=== PATIENT | male | born 1945 | race Caucasian/White ===

== ENCOUNTER 2024-12-14 15:16 | Outpatient (OUT) | payer MEDICARE, SELFPAY ==
--- OUTSIDE RECORDS SUMMARY | 2008-09-21 20:00 | XMS_ITS | Continuity of Care Document ---
Author Organization [facility] Address [address] [place] [address] Phone Care Team Providers Care Ssn/Ssbn Weapons Equipment Operator Name Role Phone No Information Unavailable Unavailable Advance Directives Directive Yes / No Effective Date File Name No Information Encounters Encounter Description Practice Location Reason(s) For Visit Diagnoses Date Provider Providers Copied on Encounter [facility], [address] [place] [address], [place], [address], [place] tel:[phone] No Location No Information Sep-0 [id number] No Information Family History Family Member Type Diagnosis Age At Onset No Information Payers Payer name Insurance type Covered republican ID Authoriza tion(s) No Information Social History Type Description Quantity Date Captured Comments Sex Male Smoking Status No Information Chief Complaint And Reason For Visit No Information Reason For Referral Reason For Referral No Information History Of Present Illness Encounter Date Complaint History Of Prese nt Illness No Information Functional Status Date Functional Assessmen t No Information Instructions Date Instruction Additional Infor mation No Information Assessments Type Assessment Date No Information Patient Care Teams Name Effective Dates (start - stop) Status Members No Information
--- NOTE | 2024-12-14 15:18 | XR_ITS ---
The [address] [address] Patient Name: GENESIS HARRIS MRN: [id number] date: 1945 Sex: M Assigned Patient Location: RAD Current Patient Location: [facility] Accession/Order Number: [id number] Exam Date: 12/14/2024 15:36 Report Date: 12/14/2024 15:37 At the request of: ROSITA CLAUDIO MD Procedure: XR abdomen 1V KUB: CLINICAL INFORMATION: Acute left flank pain for one week. COMPARISON: None FINDINGS: No suspicious urinary calcifications seen along the left collecting system. Phleboliths are seen within the pelvis. Right-sided double-J ureteral stent is noted. No bowel obstruction or free air. Osseous structures demonstrate degenerative change. XR/XR abdomen 1V IMPRESSION: NO DEFINITIVE LEFT URINARY TRACT CALCULUS. RIGHT SIDED DOUBLE-J URETERAL STENT IN PLACE. NO DEFINITIVE STONE IS SEEN ALONG THE COURSE OF THE STENT. Impression dictated by: Earl Frost Jr., DPatricioOPatricio 12/14/2024 3:37 PM Dictation Location: [place] [address] Electronically authenticated by: [id number] Y Date: 12/14/2024 15:37
--- OUTSIDE RECORDS SUMMARY | 2024-12-14 15:18 | XMS_ITS | Encounter Summary ---
Author Organization [facility] Address [address] [place] [address] Care Team Providers Care Vocational Training Teacher Name Role Phone Dinesh Pisano DO Primary Care Provider Dinesh Pisano DO Unavailable [phone] Gracy Luna TECHNOLOGY LAB TEACHER Unavailable [phone] Source Comments In the event this information is protected by the Federal Confidentiality of Alcohol and Drug AbusePatient Records regulations: The Federal rules restrict any use of the information to criminally investigate or prosecute any alcohol or drug abuse patient.[facility] Encounter Details Date Type Department Care Team (Late st Contact Info) Description 04/30/2024 Get Medical Advice Urology [address] [place] [address] Jacob Pena MD [address] [place], [place] [id number] Emergency Room Social History Tobacco Use Types Packs/Day Years Used Date Smoking Tobacco: Former Cigarettes Q uit: 1979 Smokeless Tobacco: Never Alcohol Use Standard Drinks/Week Comments Yes 7 (1 standard drink = 0.6 oz pur e alcohol) 2 drinks a day [facility] Utilities Answer Date Recorded In the past 12 months has th e electric, gas, oil, or water company threatened to shut off services in your home? No 04/26/2024 AUDIT-C Answer Date Recorded Q1: How often do you have a drink containing alcohol? 4 or more times a week 08/08/2019 Q2: How many drinks containi ng alcohol do you have on a typical day when you are drinking? 3 or 4 0 Q3: How often do you have si x or more drinks on one occasion? Monthly 08/08/2019 PHQ-2 Answer Date Recorded PHQ-2 score 3 09/13/2023 Hunger Vital Sign Answer Date Recorded Within the past 12 months, y ou worried that your food would run out before you got the money to buy more. Never true 04/26/20 24 Within the past 12 months, t he food you bought just didn't last and you didn't have money to get more. Never true 04/26/2024 PRAPARE - Transportation Answer Date Re corded In the past 12 months, has l ack of transportation kept you from medical appointments or from getting medications? No 12/2023 In the past 12 months, has l ack of transportation kept you from meetings, work, or from getting things needed for daily living? No 04/26/2024 Housing Stability Vital Sign Answer Marco e Recorded In the last 12 months, was t here a time when you were not able to pay the mortgage or rent on time? No 04/26/2024 Number of Times Moved in the Last Year Not on fi le 04/26/2024 At any time in the past 12 m [facility], were you homeless or living in a senior care (including now)? No 04/26/2024 Area Deprivation Index Answer Date Nguyễn rded National Score (1-100), lower number is lower ri sk 61 09/13/2023 State Score (1-10), lower number is lower risk 4 09/13/2023 Data from: https://www.neighborhoodatlas.medicine.[facility].edu/. Last address used for calculation [address] 09/13/2023 Sex and Gender Information Value Date Recorded Sex Assigned at Not on file Legal Sex Male 8:56 AM EST Gender Identity Not on file Sexual Orientation Not on file documented as of this encounter Functional Status * Are you deaf or do you have serious difficulty hearing? Answer Date of Assessment Author No 04/26/2024 4:04 PM Ti Rodríguez RN * Are you blind or do you have serious difficulty seeing, even when wearing glasses? Answer Date of Assessment Author No 04/26/2024 4:04 PM Ti Rodríguez RN * Do you have serious difficulty walking or climbing stairs? Answer Date of Assessment Author Yes 04/26/2024 4:04 PM Ti Rodríguez RN * Do you have difficulty dressing or bathing? Answer Date of Assessment Author Yes 04/26/2024 4:04 PM Ti Rodríguez RN * Because of a physical, mental, or emotional condition, do you have difficulty doing errands alone such as visiting a doctor's office or shopping? Answer Date of Assessment Author Yes 04/26/2024 4:04 PM Ti Rodríguez RN documented as of this encounter Mental Status * Because of a physical, mental, or emotional condition, do you have serious difficulty concentrating, remembering, or making decisions? Answer Entry Date Author Yes 04/26/2024 4:04 PM Ti Rodríguez RN documented in this encounter Miscellaneous Notes * Telephone Encounter - Mckenna Campa LPN - 04/30/2024 4:58 PM EST This nurse has reached out to provider, with no response at this time. He is not in office today at [place] and has already left [facility]. He will not be back in the office until , 05/02/2024. documented in this encounter Plan of Treatment Upcoming Encounters Date Type Department Care Team (Late st Contact Info) Description 01/03/2025 2:00 PM EDT Office Visit Cardiology [address] [place] [address] Micheline Willoughby MD [address] [facility] [place] [address] heart block, bradycardia documented as of this encounter Visit Diagnoses Not on filedocumented in this encounter Care Teams Vocational Training Teacher Relationship Specialty Start Date End Date Dinesh Pisano DO [address] [place] [address] PCP - General 09/26/00 Dinesh Pisano DO [address] [place] [address] Referring Internal Medicine 05/20/21 Gracy Luna APRN [address] [place] [address] Referring Internal Medicine 08/30/24 documented as of this encounter
--- OUTSIDE RECORDS SUMMARY | 2024-12-14 15:18 | XMS_ITS | Encounter Summary ---
Author Organization [facility] Address [address] [place] [address] Care Team Providers Care Attenuator Name Role Phone Dinesh Pisano DO Primary Care Provider Dinesh Pisano DO Unavailable [phone] Gracy Luna STENOTYPIST Unavailable [phone] Source Comments In the event this information is protected by the Federal Confidentiality of Alcohol and Drug AbusePatient Records regulations: The Federal rules restrict any use of the information to criminally investigate or prosecute any alcohol or drug abuse patient.[facility] Encounter Details Date Type Department Care Team (Late st Contact Info) Description 02/13/2024 Get Medical Advice Neurology [address] [place] [address] Angela Renteria APRN.BUSGIRL [address] [place] [address] Exhaustion Social History Tobacco Use Types Packs/Day Years Used Date Smoking Tobacco: Former Cigarettes Q uit: 1980 Smokeless Tobacco: Never Alcohol Use Standard Drinks/Week Comments Yes 7 (1 standard drink = 0.6 oz pure alcohol) patient states he has 3 drinks daily AUDIT-C Answer Date Recorded Q1: How often [...] Answer Date Recorded PHQ-2 score 3 09/13/2023 Area Deprivation Index Answer Date Nguyễn rded National Score (1-100), lower number is lower ri sk 61 09/13/2023 State Score (1-10), lower number is lower risk 4 09/13/2023 Data from: https://www.neighborhoodatlas.medicine.[facility].edu/. Last address used for calculation [address] 09/13/2023 Sex and Gender Information Value Date Recorded Sex Assigned at Not on file Legal Sex Male 8:56 AM EST Gender Identity Not on file Sexual Orientation Not on file documented as of this encounter Plan of Treatment Upcoming Encounters Date Type Department Care Team (Late st Contact Info) Description 01/03/2025 2:00 PM EDT Office Visit Cardiology [address] [place] [address] Micheline Willoughby MD [address] [place] [address] heart block, bradycardia documented as of this encounter Visit Diagnoses Not on filedocumented in this encounter Care Teams Attenuator Relationship Specialty Start Date End Date Dniesh Pisano DO [address] [place] [address] PCP - General 09/26/00 Dinesh Pisano DO [address] [place] [address] Referring Internal Medicine 05/20/21 Gracy Luna APRN [address] [place] [id number] Referring Internal Medicine 08/30/24 documented as of this encounter
--- OUTSIDE RECORDS SUMMARY | 2024-12-14 15:18 | XMS_ITS | Encounter Summary ---
Author Organization [facility] Address [address] [place] [address] Care Team Providers Care Business Process Consultant Name Role Phone Dinesh Pisano DO Primary Care Provider Dinesh Pisano DO Unavailable [phone] Gracy Luna COLLECTIONS ATTORNEY Unavailable Source Comments In the event this information is protected by the Federal Confidentiality of Alcohol and Drug AbusePatient Records regulations: The Federal rules restrict any use of the information to criminally investigate or prosecute any alcohol or drug abuse patient.[facility] Encounter Details Date Type Department Care Team (Late st Contact Info) Description 12/29/2022 Get Medical Advice Neurology [address] [place] [address] Angela Renteria APRN.EGGS INSPECTOR [address] [place] [address] Rivastigmine Social History Tobacco Use Types Packs/Day Years [...] more drinks on one occasion? Monthly 08/08/2019 Area Deprivation Index Answer Date Nguyễn rded National Score (1-100), lower number is lower ri sk 89 11/11/2022 State Score (1-10), lower number is lower risk 8 11/11/2022 Data from: https://www.neighborhoodatlas.medicine.[facility]/. Last address used for calculation [address] 11/11/2022 Sex and Gender Information Value Date Recorded Sex Assigned at Not on file Legal Sex Male 8:56 AM EST Gender Identity Not on file Sexual Orientation Not on file documented as of this encounter Plan of Treatment Upcoming Encounters Date Type Department Care Team (Late st Contact Info) Description 01/03/2025 2:00 PM EDT Office Visit Cardiology [address] [place] [address] Micheline Willoughby MD [address] [place] [address] heart block, bradycardia documented as of this encounter Visit Diagnoses Not on filedocumented in this encounter Care Teams Business Process Consultant Relationship Specialty Start Date End Date Dinesh Pisano DO [address] [place] [address] PCP - General 09/26/00 Dinesh Pisano DO [address] [place] [address] Referring Internal Medicine 05/20/21 Gracy Luna APRN [address] [facility] [address] [place] [address] Referring Internal Medicine 08/30/24 documented as of this encounter
--- OUTSIDE RECORDS SUMMARY | 2024-12-14 15:18 | XMS_ITS | Encounter Summary ---
Author Organization [facility] Address [address] [place] [address] Care Team Providers Care Land Appraiser Name Role Phone Dinesh Pisano DO Primary Care Provider Dinesh Pisano DO Unavailable [phone] Gracy Luna PREPRESS SUPERVISOR Unavailable [phone] Source Comments In the event this information is protected by the Federal Confidentiality of Alcohol and Drug AbusePatient Records regulations: The Federal rules restrict any use of the information to criminally investigate or prosecute any alcohol or drug abuse patient.[facility] Encounter Details Date Type Department Care Team (Late st Contact Info) Description 08/19/2023 Get Medical Advice Neurology [address] [place] [address] Angela Renteria APRN.TOP PRECIPITATOR OPERATOR HELPER [address] [place] [address] Supplement Question Social History Tobacco Use Types Packs/Day Years [...] is lower risk 8 11/11/2022 Data from: https://www.neighborhoodatlas.medicine.[facility]/. Last address used for calculation [address] [...] 2:00 PM EDT Office Visit Cardiology [address] [place] [address] Micheline Willoughby MD [address] [place] [address] heart block, bradycardia documented as of this encounter Visit Diagnoses Not on filedocumented in this encounter Care Teams Land Appraiser Relationship Specialty Start Date End Date Dinesh Pisano DO [address] [place] [address] PCP - General 09/26/00 Dinesh Pisano DO [address] [place] [address] Referring Internal Medicine 05/20/21 Gracy Luna APRN [address] [place] [id number] Referring Internal Medicine 08/30/24 documented as of this encounter
--- OUTSIDE RECORDS SUMMARY | 2024-12-14 15:18 | XMS_ITS | Encounter Summary ---
Author Organization [facility] Address [address] [place] [address] Care Team Providers Care Tar Boiler Name Role Phone Dinesh Pisano DO Primary Care Provider Dinesh Pisano DO Unavailable [phone] Gracy Luna CUSTOMER SUPPORT ANALYST Unavailable [phone] Source Comments In the event this information is protected by the Federal Confidentiality of Alcohol and Drug AbusePatient Records regulations: The Federal rules restrict any use of the information to criminally investigate or prosecute any alcohol or drug abuse patient.[facility] Encounter Details Date Type Department Care Team (Late st Contact Info) Description 11/21/2021 [place] [address] Provider, [facility] MRI Screening Questionnaire Completion Required Social History Tobacco Use Types Packs/Day Years [...] (1-100), lower number is lower ri sk 83 11/10/2021 State Score (1-10), lower number is lower risk N ot on file 11/10/2021 Data from: https://www.neighborhoodatlas.medicine.[facility].edu/. Last address used for calculation [address] 11/10/2021 Sex and Gender Information Value Date Recorded Sex Assigned at Not on file Legal Sex Male 8:56 AM EST Gender Identity Not on file Sexual Orientation Not on file COVID-19 Exposure Response Date Recorded In the last 10 days, have yo u been in contact with someone who was confirmed or suspected to have Coronavirus/COVID-19? No / Unsure 11/23/2021 1:32 PM EDT documented as of this encounter Plan of Treatment Upcoming Encounters Date Type Department Care Team (Late st Contact Info) Description 01/03/2025 2:00 PM EDT Office Visit Cardiology [address] [place] [address] Micheline Willoughby MD [address] [place] [address] heart block, bradycardia documented as of this encounter Visit Diagnoses Not on filedocumented in this encounter Care Teams Tar Boiler Relationship Specialty Start Date End Date Dinesh Pisano DO [address] [place] [address] PCP - General 09/26/00 Dinesh Pisano DO [address] [place] [address] Referring Internal Medicine 05/20/21 Gracy Luna APRN [address] [place] [id number] Referring Internal Medicine 08/30/24 documented as of this encounter
--- OUTSIDE RECORDS SUMMARY | 2024-12-14 15:18 | XMS_ITS | Encounter Summary ---
Author Organization [facility] Address [address] [place] [address] Care Team Providers Care Spinner Fixer Name Role Phone Dinesh Pisano DO Primary Care Provider Dinesh Pisano DO Unavailable [phone] Gracy Luna HAND III CUTTER Unavailable [phone] Source Comments In the event this information is protected by the Federal Confidentiality of Alcohol and Drug AbusePatient Records regulations: The Federal rules restrict any use of the information to criminally investigate or prosecute any alcohol or drug abuse patient.[facility] Encounter Details Date Type Department Care Team (Late st Contact Info) Description 06/22/2023 Patient Msg Neurology [address] [place] [address] Angela Renteria APRN.TARIFF COUNSEL [address] [place] [address] Recent ECG? Social History Tobacco Use Types Packs/Day Years [...] is lower risk 8 11/11/2022 Data from: https://www.neighborhoodatlas.medicine.[facility]/. Last address used for calculation [...] 2:00 PM EDT Office Visit Cardiology [address] [place] [address] Micheline Willoughby MD [address] [place] [address] heart block, bradycardia documented as of this encounter Visit Diagnoses Not on filedocumented in this encounter Care Teams Spinner Fixer Relationship Specialty Start Date End Date Dinesh Pisano DO [address] [place] [address] PCP - General 09/26/00 Dinesh Pisano DO [address] [place] [address] Referring Internal Medicine 05/20/21 Gracy Luna APRN [address] [facility] [address] [place] [phone] Referring Internal Medicine 08/30/24 documented as of this encounter
--- OUTSIDE RECORDS SUMMARY | 2024-12-14 15:18 | XMS_ITS | Encounter Summary ---
Author Organization [facility] Address [address] [place] [address] Care Team Providers Care Javascript Software Engineer Name Role Phone Dinesh Pisano DO Primary Care Provider Dinesh Pisano DO Unavailable [phone] Gracy Luna GRADUATE ADVISOR Unavailable [phone] Source Comments In the event this information is protected by the Federal Confidentiality of Alcohol and Drug AbusePatient Records regulations: The Federal rules restrict any use of the information to criminally investigate or prosecute any alcohol or drug abuse patient.[facility] Encounter Details Date Type Department Care Team (Late st Contact Info) Description 09/30/2023 Get Medical Advice Neurology [address] [place] [address] Mehrdad Arana MD [address] [place], [place] [id number] Medication Social History Tobacco Use Types Packs/Day Years [...] is lower risk 4 09/13/2023 Data from: https://www.neighborhoodatlas.medicine.[facility].edu/. Last address used for calculation [address] [...] 2:00 PM EDT Office Visit Cardiology [address] [place] [address] Micheline Willoughby MD [address] [place] [address] heart block, bradycardia documented as of this encounter Visit Diagnoses Not on filedocumented in this encounter Care Teams Javascript Software Engineer Relationship Specialty Start Date End Date Dinesh Pisano DO [address] [place] [address] PCP - General 09/26/00 Dinesh Pisano DO [address] [place] [address] Referring Internal Medicine 05/20/21 Gracy Luna APRN [address] [place] [id number] Referring Internal Medicine 08/30/24 documented as of this encounter
--- OUTSIDE RECORDS SUMMARY | 2024-12-14 15:18 | XMS_ITS | Encounter Summary ---
Author Organization [facility] Address [address] [place] [address] Care Team Providers Care Culinary Chef Name Role Phone Dinesh Pisano DO Primary Care Provider Dinesh Pisano DO Unavailable Gracy Luna AIRCRAFT STRUCTURAL REPAIR MECHANIC Unavailable [phone] Source Comments In the event this information is protected by the Federal Confidentiality of Alcohol and Drug AbusePatient Records regulations: The Federal rules restrict any use of the information to criminally investigate or prosecute any alcohol or drug abuse patient.[facility] Encounter Details Date Type Department Care Team (Late st Contact Info) Description 04/11/2024 Patient Msg Pre Anesthesia [address] [place], [place] [id number] Baltazar Malik APRN.TEXTILE SCREEN MAKER [address] [place], [place] [phone] PREOPERATIVE INSTRUCTIONS Social History Tobacco Use Types Packs/Day Years Used Date Smoking Tobacco: Former Cigarettes Q uit: 1980 Smokeless Tobacco: Never Alcohol Use Standard Drinks/Week Comments Yes 7 (1 standard drink = 0.6 oz pur e alcohol) 2 drinks a day AUDIT-C Answer Date Recorded Q1: How often [...] is lower risk 4 09/13/2023 Data from: https://www.neighborhoodatlas.medicine.[facility]/. Last address used for calculation [address] 09/13/2023 Sex and Gender Information Value Date Recorded Sex Assigned at Not on file Legal Sex Male 8:56 AM EST Gender Identity Not on file Sexual Orientation Not on file documented as of this encounter Miscellaneous Notes * Telephone Encounter - Evita Barnes - 04/24/2024 12:42 PM EST Patient spouse calling because she is trying to get an approximate time of recovery for patient tomorrow She was told the procedure itself was about 2 hours but she is arranging a ride from family and wanted to know how long they would be there Please advise documented in this encounter Plan of Treatment Upcoming Encounters Date Type Department Care Team (Late st Contact Info) Description 01/03/2025 2:00 PM EDT Office Visit Cardiology [address] [facility] [place] [address] Micheline Willoughby MD [address] [facility] [place] [address] heart block, bradycardia documented as of this encounter Visit Diagnoses Not on filedocumented in this encounter Care Teams Culinary Chef Relationship Specialty Start Date End Date Dinesh Pisano DO [address] [place] [address] PCP - General 09/26/00 Dinesh Pisano DO [address] [place] [address] Referring Internal Medicine 05/20/21 Gracy Luna APRN [address] [place] [address] Referring Internal Medicine 08/30/24 documented as of this encounter
--- OUTSIDE RECORDS SUMMARY | 2024-12-14 15:18 | XMS_ITS | Encounter Summary ---
Author Organization [facility] Address [address] [place] [address] Care Team Providers Care Saddle Stitching Machine Operator Name Role Phone Dinesh Pisano DO Primary Care Provider Dinesh Pisano DO Unavailable [phone] Gracy Luna ROTARY VENEER MACHINE OPERATOR Unavailable [phone] Source Comments In the event this information is protected by the Federal Confidentiality of Alcohol and Drug AbusePatient Records regulations: The Federal rules restrict any use of the information to criminally investigate or prosecute any alcohol or drug abuse patient.[facility] Encounter Details Date Type Department Care Team (Late st Contact Info) Description 12/17/2022 Get Medical Advice Neurology [address] [id number] Angela Renteria APRN.OVERHEAD WORKER [address] [place], [place] [id number] Medication Social History Tobacco Use Types Packs/Day [...] is lower risk 8 11/11/2022 Data from: https://www.neighborhoodatlas.medicine.[facility]/. Last address used for calculation [address] [...] 2:00 PM EDT Office Visit Cardiology [address] [facility] [address] [facility] [place] [address] Micheline Willoughby MD [address] [facility] [facility] [place] [address] heart block, bradycardia documented as of this encounter Visit Diagnoses Not on filedocumented in this encounter Care Teams Saddle Stitching Machine Operator Relationship Specialty Start Date End Date Dinesh Pisano DO [address] [place] [address] PCP - General 09/26/00 Dinesh Pisano DO [address] [place] [address] Referring Internal Medicine 05/20/21 Gracy Luna, ROTARY VENEER MACHINE OPERATOR [address] [facility] [address] [place] [id number] Referring Internal Medicine 08/30/24 documented as of this encounter
--- OUTSIDE RECORDS SUMMARY | 2024-12-14 15:19 | XMS_ITS | Encounter Summary ---
Author Organization [facility] Address [address] [place] [address] Care Team Providers Care Underground Conduit Installer Name Role Phone Dinesh Pisano DO Primary Care Provider Dinesh Pisano DO Unavailable [phone] Gracy Luna LEATHER SKINNER Unavailable [phone] Source Comments In the event this information is protected by the Federal Confidentiality of Alcohol and Drug AbusePatient Records regulations: The Federal rules restrict any use of the information to criminally investigate or prosecute any alcohol or drug abuse patient.[facility] Encounter Details Date Type Department Care Team (Late st Contact Info) Description 01/24/2023 Get Medical Advice [facility] Speech Therapy [address] [place] [address] Tricia Jennings, [facility] MEDICAL DIRECTOR [address] [place] [address] Encouragement Social History Tobacco Use Types Packs/Day Years [...] risk 8 11/11/2022 Data from: https://www.neighborhoodatlas.medicine.[facility]/. Last address used for [...] 2:00 PM EDT Office Visit Card[facility] [address] [facility] [place] [address] Micheline Willoughby MD [address] [place] [address] heart block, bradycardia documented as of this encounter Visit Diagnoses Not on filedocumented in this encounter Care Teams Underground Conduit Installer Relationship Specialty Start Date End Date Dinesh Pisano DO [address] [place] [address] PCP - General 09/26/00 Dinesh Pisano DO [address] [place] [address] Referring Internal Medicine 05/20/21 Gracy Luna APRN [address] [facility] [address] [place] [id number] Referring Internal Medicine 08/30/24 documented as of this encounter
--- OUTSIDE RECORDS SUMMARY | 2024-12-14 15:19 | XMS_ITS | Encounter Summary ---
Author Organization [facility] Address [address] [place] [address] Care Team Providers Care Controller Coal Or Ore Name Role Phone Dinesh Pisano DO Unavailable [phone] Dinesh Pisano DO Primary Care Provider Dinesh Pisano DO Unavailable [phone] Encounter Details Date Type Department Care Team (Late st Contact Info) Description 04/12/2024 Clinisync Result Encounter [facility] External Department Unsolicited Provider, Generic External Data Social History Tobacco Use Types Packs/Day Years Used Date Smoking Tobacco: Former Cigarettes 1 4 - 1969 Smokeless Tobacco: Never Alcohol Use Standard Drinks/Week Comments Yes 4 (1 standard drink = 0.6 oz pure alcohol) caffeine intake: 2-3 cups per day coffee, soda and tea PHQ-2 Answer Date Recorded Patient Health Questionnaire-2 Score 0 04/03/2024 Education Answer Date Recorded What is the highest level of school you have completed or the highest degree you have received? Bachelor's degree (e.g., BA, AB, BS) 03/01/2023 Sex and Gender Information Value Date Recorded Sex Assigned at Not on file Legal Sex Male 6:38 PM EDT Gender Identity Not on file Sexual Orientation Not on file documented as of this encounter Plan of Treatment Upcoming Encounters Date Type Department Care Team (Late st Contact Info) Description 01/14/2025 3:00 PM EDT Office Visit [facility] [address] [place] [address] Dinesh Pisano DO [address] [place] [address] documented as of this encounter Procedures Procedure Name Priority Date/Time Associated Diagnosis Comments ECG 12-LEAD 04/12/2024 1:04 PM EDT documented in this encounter Results * ECG 12 lead (04/12/2024 1:04 PM EDT) 04/12/2024 1:04 PM EDT Narrative [facility] - 04/28/2024 2:03 PM EST Ventricular Rate : 80 BPM Atrial Rate : 80 BPM P-R Interval : 284 ms QRS Duration : 94 ms Q-T Interval : 374 ms QTC Calculation(Bazett) : 431 ms Calculated P [place] : 37 degrees Calculated R [place] : -19 degrees Calculated T [place] : 59 degrees SINUS RHYTHM WITH 1ST DEGREE AV BLOCK INFERIOR MYOCARDIAL INFARCTION , AGE UNDETERMINED POSSIBLE ABNORMAL ECG Confirmed by ARIANNE JEAN M.D. ([id number]) on 04/28/2024 2:03:22 PM NAME : BUCKY HARRIS PID : [id number] : 1945 Gender : Male Race : ORD : [id number] Procedure Date : Apr 12 2024 13:04:12 Edit Date : Apr 28 2024 14:03:27 Diagnosis: SINUS RHYTHM WITH 1ST DEGREE AV BLOCK INFERIOR MYOCARDIAL INFARCTION , AGE UNDETERMINED POSSIBLE ABNORMAL ECG Confirmed by ARIANNE JEAN M.D. ([id number]) on 04/28/2024 2:03:22 PM Test Reason : Location : 145 : [place] Overread By : ARIANNE JEAN M.D. Edited By : ARIANNE JEAN M.D. Referred By : ALVAREZ LYONS Acquired by : vs, Procedure Note Radiology, Radiologist, - 04/28/2024 Ventricular Rate : 80 BPM Atrial Rate : 80 BPM P-R Interval : 284 ms QRS Duration : 94 ms Q-T Interval : 374 ms QTC Calculation(Bazett) : 431 ms Calculated P [place] : 37 degrees Calculated R [place] : -19 degrees Calculated T [place] : 59 degrees SINUS RHYTHM WITH 1ST DEGREE AV BLOCK INFERIOR MYOCARDIAL INFARCTION , AGE UNDETERMINED POSSIBLE ABNORMAL ECG Confirmed by ARIANNE JEAN M.D. ([id number]) on 04/28/2024 2:03:22PM NAME : BUCKY HARRIS PID : [id number] : 1945 Gender : Male Race : ORD : [id number] Procedure Date : Apr 12 2024 13:04:12 Edit Date : Apr 28 2024 14:03:27 Diagnosis: SINUS RHYTHM WITH 1ST DEGREE AV BLOCK INFERIOR MYOCARDIAL INFARCTION , AGE UNDETERMINED POSSIBLE ABNORMAL ECG Confirmed by ARIANNE JEAN M.D. ([id number]) on 04/28/2024 2:03:22PM Test Reason : Location : 145 : [place] Overread By : ARIANNE JEAN M.D. Edited By : ARIANNE JEAN M.D. Referred By : ALVAREZ LYONS Acquired by : vs, us Generic External Data Provider ECG ORDERABLES F inal Result Performing Organization Address City/State/[facility] Co de Phone Number [facility] documented in this encounter Visit Diagnoses Not on filedocumented in this encounter Care Teams Controller Coal Or Ore Relationship Specialty Start Date End Date Dinesh Pisano DO [address] [place] [address] PCP - [employer] 06/20/22 08/24/24 Dinesh Pisano DO [address] [place] [address] PCP - General Internal Medicine 11/30/22 Dinesh Pisano DO [address] [place] [address] PCP - [facility] 06/20/23 [birth year] documented as of this encounter
--- OUTSIDE RECORDS SUMMARY | 2024-12-14 15:19 | XMS_ITS | Encounter Summary ---
Author Organization [facility] Address [address] [place] [address] Care Team Providers Care Feather Mixer Name Role Phone Dinesh Pisano DO Unavailable [phone] Dinesh Pisano DO Primary Care Provider Dinesh Pisano DO Unavailable [phone] Encounter Details Date Type Department Care Team (Late st Contact Info) Description 04/25/2024 Clinisync Result Encounter [facility] External Department Unsolicited [...] Encounters Date Type Department Care Team (Late Contact Info) Description 01/14/2025 3:00 PM EDT Office Visit [facility] [address] [place] [address] Dinesh Pisano DO [address] [place] [address] documented as of this encounter Procedures Procedure Name Priority Date/Time Associated Diagnosis Comments ECG 12-LEAD 04/25/2024 4:04 PM EST [facility] Routine 04/25/2024 2:41 PM EST documented in this encounter Results * ECG 12 lead (04/25/2024 4:04 PM EST) 04/25/2024 4:04 PM EST Narrative [facility] - 04/28/2024 7:07 AM EST Ventricular Rate : 43 BPM Atrial Rate : 62 BPM P-R Interval : 382 ms QRS Duration : 112 ms Q-T Interval : 493 ms QTC Calculation(Bazett) : 417 ms Calculated P [place] : 19 degrees Calculated R [place] : -11 degrees Calculated T [place] : 60 degrees Sinus bradycardia Second deg AVB, Mobitz I ([place]) Incomplete left bundle branch block Confirmed by ARIANNE JEAN M.D. ([id number]) on 04/28/2024 7:07:20 AM NAME : GENESIS HARRIS PID : [id number] : 1945 Gender : Male Race : ORD : [id number] Procedure Date : Apr 25 2024 16:04:43 Edit Date : Apr 28 2024 07:07:23 Diagnosis: Sinus bradycardia Second deg AVB, Mobitz I ([place]) Incomplete left bundle branch block Confirmed by ARIANNE JEAN M.D. ([id number]) on 04/28/2024 7:07:20 AM Test Reason : Post-OP Location : 400 : EKG POOL Overread By : ARIANNE JEAN M.D. Edited By : ARIANNE JEAN M.D. Referred By : , Acquired by : LAURA SANTIAGO Procedure Note Radiology, Radiologist, - 04/28/2024 Ventricular Rate : 43 BPM Atrial Rate : 62 BPM P-R Interval : 382 ms QRS Duration : 112 ms Q-T Interval : 493 ms QTC Calculation(Bazett) : 417 ms Calculated P [place] : 19 degrees Calculated R [place] : -11 degrees Calculated T [place] : 60 degrees Sinus bradycardia Second deg AVB, Mobitz I ([place]enckebach) Incomplete left bundle branch block Confirmed by ARIANNE JEAN M.D. ([id number]) on 04/28/2024 7:07:20AM NAME : GENESIS HARRIS PID : [id number] : 1945 Gender : Male Race : ORD : [id number] Procedure Date : Apr 25 2024 16:04:43 Edit Date : Apr 28 2024 07:07:23 Diagnosis: Sinus bradycardia Second deg AVB, Mobitz I ([place]kebach) Incomplete left bundle branch block Confirmed by ARIANNE JEAN M.D. ([id number]) on 04/28/2024 7:07:20AM Test Reason : Post-OP Location : 400 : [facility] Overread By : ARIANNE JEAN M.D. Edited By : ARIANNE JEAN M.D. Referred By : , Acquired by : LAURA SANTIAGO us Generic External Data Provider ECG ORDERABLES F inal Result [facility] * [facility] SURGICAL PATHOLOGY (04/25/2024 2:41 PM EST) [facility] CASE REPORT [facility] Comment: Surgical Pathology Report Case: [id number] Authorizing Provider: Jacob Pena MD Collected: 04/25/2024 02:41 PM Ordering Location: [facility] Received: 04/25/2024 03:47 PM Operating Room Pathologist: Antonio Sy MD Specimen: Prostate, Chips [facility] FINAL DIAGNOSIS [facility] Comment: A. Prostate, chips, transurethral resection: - Benign fibromuscular and glandular hyperplasia. GROSS DESCRIPTION [facility] Comment: A. Prostate, Chips Received in formalin designated prostate chips are multiple segments of mcmanus rubbery tissue and scant hemorrhagic material which aggregates to 21.3 x 9.5 x 0.8 cm and weighing 82 g. Water Commissioner sections are submitted in 8 cassettes. BF April 26, 2024 11:01 AM Gross examination performed at 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 04/25/2024 2:41 PM EST 04/26/2024 3:49 PM EST Narrative [facility] - 05/01/2024 3:29 PM EST Specimen Type: TISSUE SPECIMEN Ordering Facility: [facility] Address: [address] [place] [address] Original Ordering Provider: JACOB PENA us Generic External Data Provider [facility] F inal Result [facility] [address] [facility] [address] [place] [address] [facility] [address] [place] [id number] documented in this encounter Visit Diagnoses Not on filedocumented in this encounter Care Teams Feather Mixer Relationship Specialty Start Date End Date Dinesh Pisano DO [address] [place] [address] PCP - [employer] 06/20/22 08/24/24 Dinesh Pisano DO [address] [place] [address] PCP - General Internal Medicine 11/30/22 Dinesh Pisano DO [address] [place] [address] PCP - [facility] 06/20/23 [birth year]/19/[birth year] documented as of this encounter
--- OUTSIDE RECORDS SUMMARY | 2024-12-14 15:19 | XMS_ITS | Encounter Summary ---
Author Organization [facility] Address [address] [place] [address] Care Team Providers Care Drupal Architect Name Role Phone Dinesh Pisano DO Primary Care Provider Dinesh Pisano DO Unavailable [phone] Gracy Luna TRACK VEHICLE REPAIRER Unavailable [phone] Source Comments In the event this information is protected by the Federal Confidentiality of Alcohol and Drug AbusePatient Records regulations: The Federal rules restrict any use of the information to criminally investigate or prosecute any alcohol or drug abuse patient.[facility] Encounter Details Date Type Department Care Team (Late st Contact Info) Description 07/25/2024 Patient [facility] [place] [address] Provider, [facility] Reminder: Review your MyChart Caregiver(s) Social History Tobacco Use Types Packs/Day Years Used Date Smoking Tobacco: Former Cigarettes Q uit: 1980 Smokeless Tobacco: Never Alcohol Use Standard Drinks/Week Comments Yes 7 (1 standard drink = 0.6 oz pur e alcohol) 2 drinks a day [facility] Utilities Answer Date Recorded In the past [...] any time in the past 12 [facility], were you homeless or living in a intermediate (including now)? No 04/26/2024 Area Deprivation Index Answer Date Nguyễn rded National Score (1-100), lower number is lower ri sk 61 09/13/2023 State Score (1-10), lower number is lower risk 4 09/13/2023 Data from: https://www.neighborhoodatlas.medicine.[facility].edu/. Last address used for calculation [...] Ti Rodríguez RN documented in this encounter Plan of Treatment Upcoming Encounters Date Type Department Care Team (Late st Contact Info) Description 01/03/2025 2:00 PM EDT Office Visit Cardiology [address] [facility] Karla [facility] [place] [address] Micheline Willoughby MD [address] [facility] KARLA [facility] [place] [address] heart block, bradycardia documented as of this encounter Visit Diagnoses Not on filedocumented in this encounter Care Teams Drupal Architect Relationship Specialty Start Date End Date Dinesh Pisano DO [address] [facility] [address] [place] [address] PCP - General 09/26/00 Dinesh Pisano DO [address] [facility] [address] [place] [address] Referring Internal Medicine 05/20/21 Gracy Luna APRN [address] [place] [address] Referring Internal Medicine 08/30/24 documented as of this encounter
--- OUTSIDE RECORDS SUMMARY | 2024-12-14 15:19 | XMS_ITS | Encounter Summary ---
Author Organization [facility] Address [address] [place] [address] Care Team Providers Care Hand Ii Blocker Name Role Phone Dinesh Pisano DO Unavailable [phone] Dinesh Pisano DO Primary Care Provider Dinesh Pisano DO Unavailable [phone] Encounter Details Date Type Department Care Team (Late st Contact Info) Description 11/10/2023 Clinisync Result Encounter [facility] External Department Unsolicited [...] Date Recorded Patient Health Questionnaire-2 Score 0 04/04/2023 Education Answer Date Recorded What is the [...] IM [address] [place] [address] Dinesh Pisano DO [address] [place] [address] documented as of this encounter Procedures Procedure Name Priority Date/Time Associated Diagnosis Comments US KIDNEY/BLADDER 11/10/2023 1:3 6 PM EDT documented in this encounter Results * US KIDNEY/BLADDER (11/10/2023 1:36 PM EDT) Anatomical Region Laterality Modality Other 11/10/2023 1:36 PM EDT Narrative 11/10/2023 4:47 PM EDT * * *Final Report* * * DATE OF EXAM: Nov 10 2023 1:36PM [facility] 1055 - US KIDNEY/BLADDER / PROCEDURE REASON: Urge incontinence * * * * Physician Interpretation * * * * EXAMINATION: RENAL ULTRASOUND CLINICAL HISTORY: Urge incontinence. TECHNIQUE: Sonography of the kidneys and urinary bladder was performed. Images were obtained and stored in a permanent archive. MQ: UR_1 COMPARISON: None RESULT: Right Kidney: -Renal length: 13.4 cm -Parenchyma: Normal parenchymal echogenicity. Normal parenchymal thickness. -Collecting system: No hydronephrosis. -Calculus: Echogenic foci are noted in the right kidney measuring up to 4 mm. No shadowing or twinkle artifact is noted on color Doppler imaging. These may represent vascular calcifications or small renal calculi. -Lesion: None. Left Kidney: -Renal length: 13.4 cm -Parenchyma: Normal parenchymal echogenicity. Normal parenchymal thickness. -Collecting system: No hydronephrosis. -Calculus: Multiple calculi are noted, the largest cluster noted in the upper pole measuring up to 1 x 1 x 1.1 cm. -Lesion: There is a parapelvic cyst in the upper pole of the left kidney measuring up to 1.9 cm. Bladder: No bladder calculus, mass, or wall thickening is seen. Prior to voiding, the bladder measured approximately 6.1 x 5.5 x 5 cm, resulting in a prevoid volume of 116 cc. After voiding, the bladder measured approximately 5.7 x 4.3 x 2.5 cm, resulting in a postvoid volume of 45 cc. The prostate gland is enlarged measuring 8.3 x 6.2 x 5.7 cm, resulting in a volume of approximately 151 cc. Other: Increased echogenicity of the liver is noted, in keeping with hepatic steatosis IMPRESSION: 1. No sonographic evidence of bladder calculus, mass, or wall thickening. Small postvoid residual as noted above. 2. Markedly enlarged prostate gland. 3. Left-sided nephrolithiasis. Nephrolithiasis versus vascular calcification in the right kidney. No hydronephrosis in either kidney. 4. Incidental note made of hepatic steatosis. Casting Operator: PSCB Transcribe Date/Time: Nov 10 2023 4:41P Dictated by : FABY CANAS MD This examination was interpreted and the report reviewed and electronically signed by: FABY CANAS MD on Nov 10 2023 4:44PM EST [id number] Procedure Note Radiology, Radiologist, - 11/10/2023 * * *Final Report* * * DATE OF EXAM: Nov 10 2023 1:36PM [facility] 1055 - US KIDNEY/BLADDER / PROCEDURE REASON: Urge incontinence * * * * Physician Interpretation * * * * EXAMINATION: RENAL ULTRASOUND CLINICAL HISTORY: Urge incontinence. TECHNIQUE: Sonography of the kidneys and urinary bladder was performed. Images were obtained and stored in a permanent archive. MQ: UR_1 COMPARISON: None RESULT: Right Kidney: -Renal length: 13.4 cm -Parenchyma: Normal parenchymal echogenicity. Normal parenchymal thickness. -Collecting system: No hydronephrosis. -Calculus: Echogenic foci are noted in the right kidney measuring up to 4 mm. No shadowing or twinkle artifact is noted on color Doppler imaging. These may represent vascular calcifications or small renal calculi. -Lesion: None. Left Kidney: -Renal length: 13.4 cm -Parenchyma: Normal parenchymal echogenicity. Normal parenchymal thickness. -Collecting system: No hydronephrosis. -Calculus: Multiple calculi are noted, the largest cluster noted in the upper pole measuring up to 1 x 1 x 1.1 cm. -Lesion: There is a parapelvic cyst in the upper pole of the left kidney measuring up to 1.9 cm. Bladder: No bladder calculus, mass, or wall thickening is seen. Prior to voiding, the bladder measured approximately 6.1 x 5.5 x 5 cm, resulting in a prevoid volume of 116 cc. After voiding, the bladder measured approximately 5.7 x 4.3 x 2.5 cm, resulting in a postvoid volume of 45 cc. The prostate gland is enlarged measuring 8.3 x 6.2 x 5.7 cm, resulting in a volume of approximately 151 cc. Other: Increased echogenicity of the liver is noted, in keeping with hepatic steatosis IMPRESSION: 1. No sonographic evidence of bladder calculus, mass, or wall thickening. Small postvoid residual as noted above. 2. Markedly enlarged prostate gland. 3. Left-sided nephrolithiasis. Nephrolithiasis versus vascular calcification in the right kidney. No hydronephrosis in either kidney. 4. Incidental note made of hepatic steatosis. Casting Operator: LALO Transcribe Date/Time: Nov 10 2023 4:41P Dictated by : FABY CANAS MD This examination was interpreted and the report reviewed and electronically signed by: FABY CANAS MD on Nov 10 2023 4:44PM EST [id number] Generic External Data Provider [facility] Final Result documented in this encounter Visit Diagnoses Not on filedocumented in this encounter Care Teams Hand Ii Blocker Relationship Specialty Start Date End Date Dinesh Pisano DO [address] [place] [address] PCP - [employer] 06/20/22 08/24/24 Dinesh Pisano DO [address] [place] [address] PCP - General Internal Medicine 11/30/22 Dinesh Pisano DO [address] [place] [address] PCP - [facility] 06/20/23 04/19/64 documented as of this encounter
--- OUTSIDE RECORDS SUMMARY | 2024-12-14 15:19 | XMS_ITS | Encounter Summary ---
Author Organization [facility] Address [address] [place] [address] Care Team Providers Care Building Architect Name Role Phone Dinesh Pisano DO Primary Care Provider Dinesh Pisano DO Unavailable [phone] Gracy Luna SHAMPOO ASSISTANT Unavailable [phone] Source Comments In the event this information is protected by the Federal Confidentiality of Alcohol and Drug AbusePatient Records regulations: The Federal rules restrict any use of the information to criminally investigate or prosecute any alcohol or drug abuse patient.[facility] Encounter Details Date Type Department Care Team (Late st Contact Info) Description 04/05/2023 Patient Msg Neurology [address] [place] [id number] Provider, Ccf PLEASE CONFIRM SLEEP STUDY #2 Social History Tobacco Use Types Packs/Day Years [...] is lower risk 8 11/11/2022 Data from: https://www.neighborhoodatlas.medicine.[facility].edu/. Last address used for calculation [address] [...] 2:00 PM EDT Office Visit Cardiology [address] [place] [address] Micheline Willoughby MD [address] [place] [address] heart block, bradycardia documented as of this encounter Visit Diagnoses Not on filedocumented in this encounter Care Teams Building Architect Relationship Specialty Start Date End Date Dinesh Pisano DO [address] [place] [place] [address] PCP - General 09/26/00 Dinesh Pisano DO [address] [place] [place] [address] Referring Internal Medicine 05/20/21 Gracy Luna APRN [address] [place] [place] [address] Referring Internal Medicine 08/30/24 documented as of this encounter
--- OUTSIDE RECORDS SUMMARY | 2024-12-14 15:19 | XMS_ITS | Encounter Summary ---
Author Organization [facility] Address [address] [place] [address] Care Team Providers Care Electrical Installer Name Role Phone Dinesh Pisano DO Primary Care Provider Dinesh Pisano DO Unavailable [phone] Gracy Luna STAVE AND BOLT EQUALIZER Unavailable [phone] Source Comments In the event this information is protected by the Federal Confidentiality of Alcohol and Drug AbusePatient Records regulations: The Federal rules restrict any use of the information to criminally investigate or prosecute any alcohol or drug abuse patient.[facility] Encounter Details Date Type Department Care Team (Late st Contact Info) Description 09/27/2022 Get Medical Advice Neurology [address] [phone] Angela Renteria APRN.RESTAURANT SERVER [address] [place], [place] [phone] Follow up to medication message sent Social History Tobacco Use Types Packs/Day Years [...] lower number is lower ri sk 83 07/07/2022 State Score (1-10), lower number is lower risk N ot on file 07/07/2022 Data from: https://www.neighborhoodatlas.[facility]/. Last address used for calculation [address] 07/07/2022 Sex and Gender Information Value Date Recorded Sex Assigned at Not on file Legal Sex Male 8:56 AM EST Gender Identity Not on file Sexual Orientation Not on file documented as of this encounter Plan of Treatment Upcoming Encounters Date Type Department Care Team (Late st Contact Info) Description 01/03/2025 2:00 PM EDT Office Visit Cardiology [address] [place] [address] Micheline Willoughby MD [address] [place] [address] heart block, bradycardia documented as of this encounter Visit Diagnoses Not on filedocumented in this encounter Care Teams Electrical Installer Relationship Specialty Start Date End Date Dinesh Pisano DO [address] [place] [address] [place] [address] PCP - General 09/26/00 Dinesh Pisano DO [address] [place] [place] [address] Referring Internal Medicine 05/20/21 Gracy Luna APRN [address] [facility] [address] [place] [address] Referring Internal Medicine 08/30/24 documented as of this encounter
--- OUTSIDE RECORDS SUMMARY | 2024-12-14 15:19 | XMS_ITS | Encounter Summary ---
Author Organization [facility] Address [address] [place] [address] Care Team Providers Care Leveling Machine Operator Name Role Phone Dinesh Pisano DO Primary Care Provider Dinesh Pisano DO Unavailable [phone] Gracy Luna PARTS EXPEDITER Unavailable [phone] Source Comments In the event this information is protected by the Federal Confidentiality of Alcohol and Drug AbusePatient Records regulations: The Federal rules restrict any use of the information to criminally investigate or prosecute any alcohol or drug abuse patient.[facility] Encounter Details Date Type Department Care Team (Late st Contact Info) Description 07/07/2022 Patient Msg Neurology [address] [place] [address] Angela Renteria APRN.PICK OUT HAND [address] [place] [address] Update per Eugenia PETE Social History Tobacco Use Types Packs/Day Years [...] N ot on file 07/07/2022 Data from: https://www.neighborhoodatlas.medicine.[facility]/. Last address used for calculation [address] 07/07/2022 Sex and Gender Information Value Date Recorded Sex Assigned at Not on file Legal Sex Male 8:56 AM EST Gender Identity Not on file Sexual Orientation Not on file documented as of this encounter Miscellaneous Notes * Telephone Encounter - Eugenia Berrios LISW - 07/13/2022 5:21 PM EST That sounds like a good plan! documented in this encounter Plan of Treatment Upcoming Encounters Date Type Department Care Team (Late st Contact Info) Description 01/03/2025 2:00 PM EDT Office Visit Cardiology [address] [facility] [place] [phone] Micheline Willoughby MD [address] [facility] [place] [address] heart block, bradycardia documented as of this encounter Visit Diagnoses Not on filedocumented in this encounter Care Teams Leveling Machine Operator Relationship Specialty Start Date End Date Dinesh Pisano DO [address] [place] [place] [address] PCP - General 09/26/00 Dinesh Pisano DO [address] [facility] [address] [place] [address] Referring Internal Medicine 05/20/21 Gracy Luna APRN [address] [place] [place] [address] Referring Internal Medicine 08/30/24 documented as of this encounter
--- OUTSIDE RECORDS SUMMARY | 2024-12-14 15:19 | XMS_ITS | Encounter Summary ---
Author Organization [facility] Address [address] [place] [address] Care Team Providers Care Federal Appellate Law Clerk Name Role Phone Dinesh Pisano DO Unavailable [phone] Dinesh Pisano DO Unavailable Dinesh Pisano DO Primary Care Provider Dinesh Pisano DO Unavailable [phone] Encounter Details Date Type Department Care Team (Late st Contact Info) Description 10/22/2022 Abstract [facility] [address] [facility] [address] [place] [address] Dinesh Pisano DO [address] [facility] [address] [place] [address] Social History Tobacco Use Types Packs/Day Years Used Date Smoking Tobacco: Former Cigarettes 1969 Tobacco Cessation:Counseling Given: Not Answered Alcohol Use Standard Drinks/Week Comments Yes 4 (1 standard drink = 0.6 oz pure alcohol) caffeine intake: 2-3 cups per day coffee, soda and tea Sex and Gender Information Value Date Recorded Sex Assigned at Not on file Legal Sex Male 6:38 PM EDT Gender Identity Not on file Sexual Orientation Not on file documented as of this encounter Plan of Treatment Upcoming Encounters Date Type Department Care Team (Late st Contact Info) Description 01/14/2025 3:00 PM EDT Office Visit [facility] IM [address] [facility] [address] [place] [address] Dinesh Pisano DO [address] [place] [address] documented as of this encounter Visit Diagnoses Not on filedocumented in this encounter Care Teams Federal Appellate Law Clerk Relationship Specialty Start Date End Date Dinesh Pisano DO [address] [place] [address] PCP - [facility] 06/20/22 08/24/24 Dinesh Pisano DO [address] [place] [address] PCP - [facility] 02/18/22 04/19/23 Dinehs Pisano DO [address] [place] [place] [address] PCP - General Internal Medicine 11/30/22 Dinesh Pisano DO [address] [place] [place] [address] PCP - [facility] 06/20/23 [birth year] documented as of this encounter
--- OUTSIDE RECORDS SUMMARY | 2024-12-14 15:19 | XMS_ITS | Encounter Summary ---
Author Organization [facility] Address [address] [place] [address] Care Team Providers Care Infertility Nurse Name Role Phone Dinesh Pisano DO Unavailable [phone] Dinesh Pisano DO Primary Care Provider [phone] Dinesh Pisano DO Unavailable [phone] Encounter Details Date Type Department Care Team (Late st Contact Info) Description 04/30/2024 Clinisync Result Encounter [facility] External Department Unsolicited [...] IM [address] [place] [place] [address] Dinesh Pisano DO [address] [place] [place] [address] documented as of this encounter Procedures Procedure Name Priority Date/Time Associated Diagnosis Comments [facility] BACTERIA UR CULT Routine 04/30/2024 8:28 PM EST ECG 12-LEAD 04/30/2024 6:51 PM EST documented in this encounter Results * [facility] BACTERIA UR CULT (04/30/2024 8:28 PM EST) [facility] BACTERIA UR CULT CULTURE, URINE: No growth (<1,000 CFU/ml) [facility] 04/30/2024 8:28 PM EST 05/01/2024 1:12 AM EST Narrative [facility] - 05/01/2024 8:07 PM EST Original Ordering Provider: YENIFER DIEGO us Generic External Data Provider [employer]IN[employer] SolutionsNC F inal Result [facility] [address] [address] * ECG 12 lead (04/30/2024 6:51 PM EST) 04/30/2024 6:51 PM EST Narrative [facility] - 05/01/2024 10:23 AM EST Ventricular Rate : 54 BPM Atrial Rate : 75 BPM P-R Interval : 352 ms QRS Duration : 102 ms Q-T Interval : 433 ms QTC Calculation(Bazett) : 444 ms Calculated P Sanger : 0 degrees Calculated R Sanger : 10 degrees Calculated T Sanger : -7 degrees Second degree AV block, Mobitz I Atrial premature complexes Inferior infarct, age indeterminate Abnormal ECG 1901 MOBITZ I NO STEMI Confirmed by KEERTHI MEZA DO ([id number]), assignment editor PRADIP PAREDES ([id number]) on 05/01/2024 10:23:13 AM NAME : BUCKY HARRIS PID : [id number] : 1945 Gender : Male Race : ORD : [id number] Procedure Date : Apr 30 2024 18:51:08 Edit Date : May 01 2024 10:23:21 Diagnosis: Second degree AV block, Mobitz I Atrial premature complexes Inferior infarct, age indeterminate Abnormal ECG 1902 MOBITZ I NO STEMI Confirmed by KEERTHI MEZA DO ([id number]), assignment editor PRADIP PAREDES ([id number]) on 05/01/2024 10:23:13 AM Test Reason : Arrhythmia Location : 302 : ED AVED-8 Overread By : KEERTHI MEZA DO Edited By : PRADIP PAREDES Referred By : , Acquired by : [id number], Procedure Note Radiology, Radiologist, MD - 05/01/2024 Ventricular Rate : 54 BPM Atrial Rate : 75 BPM P-R Interval : 352 ms QRS Duration : 102 ms Q-T Interval : 433 ms QTC Calculation(Bazett) : 444 ms Calculated P Sanger : 0 degrees Calculated R Sanger : 10 degrees Calculated T Sanger : -7 degrees Second degree AV block, Mobitz I Atrial premature complexes Inferior infarct, age indeterminate Abnormal ECG 1902 MOBITZ I NO STEMI Confirmed by KEERTHI MEZA DO ([id number]), assignment editor PRADIP PAREDES ([id number])on 05/01/2024 10:23:13 AM NAME : BUCKY HARRIS PID : [id number] : 1945 Gender : Male Race : ORD : [id number] Procedure Date : Apr 30 2024 18:51:08 Edit Date : May 01 2024 10:23:21 Diagnosis: Second degree AV block, Mobitz I Atrial premature complexes Inferior infarct, age indeterminate Abnormal ECG 1902 [address]OB[address] I NO STEMI Confirmed by KEERTHI MEZA DO ([id number]), assignment editor PRADIP PAREDES ([id number])on 05/01/2024 10:23:13 AM Test Reason : Arrhythmia Location : 302 : ED AVED-8 Overread By : KEERTHI MEZA DO Edited By : PRADIP PAREDES Referred By : , Acquired by : [id number], us Generic External Data Provider ECG ORDERABLES F inal Result [facility] CC documented in this encounter Visit Diagnoses Not on filedocumented in this encounter Care Teams Infertility Nurse Relationship Specialty Start Date End Date Dinesh Pisano DO [address] [place] [place] [address] PCP - [employer] 06/20/22 08/24/24 Dinesh Pisano DO [address] [place] [address] [place] [address] PCP - General Internal Medicine 11/30/22 Dinesh Pisano DO [address] [place] [place] [address] PCP - [facility] 06/20/23 [birth year] documented as of this encounter
--- OUTSIDE RECORDS SUMMARY | 2024-12-14 15:19 | XMS_ITS | Clinical Summary ---
Author Organization [facility] Address [address] [place] [address] Care Team Providers Care Picture Frames Inspector Name Role Phone Dinesh Pisano DO Primary Care Provider [phone] Dinesh Pisano DO Unavailable [phone] Allergies No known active allergies Medications Cholecalciferol (Vitamin D) 50 MCG (1999) capsuleIndications:Vitam in D deficiency Take 1 capsule (50 mcg) by mouth in the morning. 90 capsule 3 06/30/19 24 Active donepezil (Aricept) 5 MG tabletIndications:Suzan ia with behavioral disturbance (HCC) Take 1 tablet (5 mg) by mouth at bedtime 90 tablet 3 06/30/19 24 Active lisinopril 10 MG tabletIndications:Essent ial hypertension Take 1 tablet (10 mg) by mouth Daily 90 tablet 3 04/18/20 24 Active traMADol (Ultram) 50 MG tabletIndications:Bilate ral kidney stones,Pain due to ureteral stent, sequela Take 1 tablet (50 mg) by mouth every 8 (eight) hours if needed for severe pain 20 tablet 08/30/19 25 Active atorvastatin (Lipitor) 40 MG tabletIndications:Pure hypercholesterolemia TAKE 1 TABLET BY MOUTH IN THE MORNING 100 tablet 2 11/14/19 25 Active finasteride (Proscar) 5 MG tabletIndications:Benign prostatic hyperplasia with lower urinary tract symptoms, symptom details unspecified TAKE 1 TABLET BY MOUTH DAILY 100 tablet 2 11/14/19 25 Active Active Problems Problem Noted Date Diagnosed Date Diarrhea 04/03/2024 Medicare annual wellness visit, subsequent 04/03 Hypersomnolence disorder, acute, moderate 2022 Dementia with behavioral disturbance 11/12/2022 Assessment & Plan (03/07/2023 9:29 AM EDT): Stable. Able to function with spouse at home. Follows neurology. Alcoholic fatty liver 11/12/2022 Atherosclerosis of aorta 11/12/2022 Benign prostatic hyperplasia with lower urinary tract symptoms 11/12/2022 Cerebral atrophy 11/12/2022 Elevated PSA 11/12/2022 Essential hypertension 11/12/2022 Obstructive uropathy 11/12/2022 Peripheral neuropathy 11/12/2022 Pure hypercholesterolemia 11/12/2022 Postural kyphosis 11/12/2022 Type 2 diabetes mellitus with foot ulcer 023 Type 2 diabetes mellitus with vascular disease 0 11/12/2022 Assessment & Plan (03/07/2023 9:29 AM EDT): He recently increased Ozempic to 2mg. He did have c diff a few months ago. I suspect loose stools may be associated with recent increase of Ozempic. They did turn in stool sample. Will follow. Agatston coronary artery calcium score less than 100 12/26/1904 Assessment & Plan (03/07/2023 9:27 AM EDT): Asymptomatic. Reviewed labs with him and . Resolved Problems Problem Noted Date Diagnosed Date Resolved Date COVID-19 06/21/2023 10/17/2023 Cold feeling 11/30/2022 01/03/2024 Lack of motivation 11/30/2022 Basal cell carcinoma (BCC) o f left side of nose 11/12/2022 01/05/2024 Morbid (severe) obesity due to excess calories 11/12/2022 01/03/2024 Diabetes mellitus 11/12/2022 01/05/2024 Encounters Date Type Department Care Team Description 11/12/2024 Refill [facility] [address] [place] [place] [address] Dinesh Pisano, Pure hypercholesterolemia ; Benign prostatic hyperplasia with lower urinary tract symptoms, symptom details unspecified 10/15/2024 2:00 PM EDT Office Visit [facility] IM [address] [place] [place] [address] Kristina Berry NP Essential hypertension (Primary Dx); Pure hypercholesterolemia ; Dementia with behavioral disturbance (HCC); Benign prostatic hyperplasia with lower urinary tract symptoms, symptom details unspecified; Type 2 diabetes mellitus with vascular disease (HCC); Bilateral kidney stones 10/15/2024 Travel 10/04/2024 Orders Only [facility] IM [address] [place] [place] [address] Caden Gotti MD from Last 3 Months Immunizations Immunization Administration Dates Next Due Influenza, High Dose Seasona l, Preservative Free 05/28/2022,06/23/2021 Influenza, Seasonal, Quadriv alent, Adjuvanted 03/02/2023 Influenza, seasonal, intrade rmal, preservative free 07/13/2013 Influenza, trivalent, adjuvanted 04/03/2024,04/20,03/01/2018 Pfizer Purple Cap SARS-CoV-2 Vaccination 021 Pneumococcal Conjugate PCV 20 11/17/2021 Pneumococcal Polysaccharide PPSV23 05/07/2020 Tdap 12/26/2023 Family History Medical History Relation Name Comments Dementia Brother Parkinsonism Father Arthritis Maternal Grandfather Melanoma Neg Hx Relation Name Status Comments Brother Father Maternal Grandfather Mother Social History Tobacco Use Types Packs/Day Years Used Date Smoking Tobacco: Former Cigarettes 1 964 - 1970 Smokeless Tobacco: Never Tobacco Cessation:Counseling Given: Yes Alcohol Use Standard Drinks/Week Comments Yes 4 [...] on file Sexual Orientation Not on file Last Filed Vital Signs Vital Sign Reading Time Taken Comments Blood Pressure 130/70 10/15/2024 1:36 PM EDT Pulse 74 10/15/2024 1:36 PM EDT Temperature - - Respiratory Rate 16 08/29/2024 10:18 AM EDT Oxygen Saturation 94% 10/15/2024 1:36 PM EDT Inhaled Oxygen Concentration - - Weight 92.1 kg (203 lb) 10/15/2024 1:36 PM EDT Height 170.2 cm (5' 7 ) 10/15/2024 1:36 PM EDT Body Mass Index 31.79 10/15/2024 1:36 PM EDT Plan of Treatment Upcoming Encounters Date Type Department Care Team (Late st Contact Info) Description 01/14/2025 3:00 PM EDT Office Visit [facility] [address] [place] [place] [address] Dinesh Pisano DO [address] [place] [address] Health Maintenance Due Date Last Done Comments Diabetes: Retinopathy Screening 1955 Diabetes: Urine Protein Screening 11/23/2023 11/22/2022, 05/18/2021, 05/05/2020 Diabetes: Hemoglobin A1C 01/14/2025 025, 07/10/2024, 04/03/2024, Additional history exists Pneumococcal Vaccine: 65+ Years Completed , 05/07/2020 Influenza Vaccine Completed 04/03/2024, , 05/28/2022, Additional history exists Procedures Procedure Name Priority Date/Time Associated Diagnosis Comments POCT GLYCOSYLATED HEMOGLOBIN (HGB A1C) Routine 10/15/2024 2:11 PM EDT Type 2 diabetes mellitus with vascular disease (HCC) XR ABDOMEN 1 VIEW Routine 10/02/2024 8:1 6 AM EDT MICROALBUMIN / CREATININE URINE RATIO Routine 11/22/2022 10:18 AM EDT from Last 3 Months or Most Recently Relevant to Health Maintenance Results * POCT glycosylated hemoglobin (Hb A1C) docked device (10/15/2024 2:11 PM EDT) Hemoglobin A1C 5.9 Blood Venous blood specimen / Unknown 10/15/2024 2:11 PM EDT Kristina Berry NP POINT OF CARE TEST ENTER/EDIT OR DERABLES Final Result * XR abdomen 1 view (10/02/2024 8:16 AM EDT) Anatomical Region Laterality Modality Abdomen Radiographic Alla ging Caden Gotti MD IMG XR PROCEDURES Final Result * Microalbumin / creatinine urine ratio (11/22/2022 10:18 AM EDT) CREATININE, RANDOM URINE 81 20 - 320 mg/dL [facility] ALBUMIN, URINE 0.3 See Note: mg/dL [facility] Comment: Reference Range: Reference Range Not established ALBUMIN/CREATININE RATIO, RANDOM URINE 4 <30 mcg/mg creat [facility] Comment: The ADA defines abnormalities in albumin excretion as follows: Albuminuria Category Result (mcg/mg creatinine) Normal to Mildly increased <30 Moderately increased 30-299 Severely increased > OR = 300 The ADA recommends that at least two of three specimens collected within a 3-6 month period be abnormal before considering a patient to be within a diagnostic category. 11/22/2022 10:1 8 AM EDT 11/22/2022 10:19 AM EDT Narrative [facility] - 11/23/2022 10:52 AM EDT FASTING:NO FASTING: NO Resulting Agency Comment Performing Organization Information Site ID: [id number] Name: [facility] Address: [address] [place] [address], [address] [place] [id number] Director: Benjamín Bolton MD Dinesh Pisano DO LAB URINE ORDERABLES Final R esult [facility] from Last 3 Months or Most Recently Relevant to Health Maintenance Insurance [facility] MEDICARE COMPLETE Care Teams Picture Frames Inspector Relationship Specialty Start Date End Date Dinesh Pisano DO [address] [facility] [address] [place] [address] PCP - General Internal Medicine 11/30/22 Dinesh Pisano DO [address] [facility] [address] [place] [address] PCP - [facility] 06/20/23 [birth year]/19/[birth year]
--- OUTSIDE RECORDS SUMMARY | 2024-12-14 15:19 | XMS_ITS | Encounter Summary ---
Author Organization [facility] Address [address] [place] [address] Care Team Providers Care Chef Head Name Role Phone Dinesh Pisano DO Primary Care Provider Dinesh Pisano DO Unavailable [phone] Gracy Luna SUPERINTENDENT PRODUCTION Unavailable [phone] Source Comments In the event this information is protected by the Federal Confidentiality of Alcohol and Drug AbusePatient Records regulations: The Federal rules restrict any use of the information to criminally investigate or prosecute any alcohol or drug abuse patient.[facility] Encounter Details Date Type Department Care Team (Late st Contact Info) Description 04/04/2023 Patient Msg Neurology [address] [phone] Provider, [facility] PLEASE CONFIRM SLEEP STUDY #1 Social History Tobacco Use Types Packs/Day Years [...] is lower risk 8 11/11/2022 Data from: https://www.neighborhoodatlas.medicine.[facility].edu/. Last address used for calculation [address] [...] 2:00 PM EDT Office Visit Cardiology [address] [place] [address] Micheline Willoughby MD [address] [place] [address] heart block, bradycardia documented as of this encounter Visit Diagnoses Not on filedocumented in this encounter Care Teams Chef Head Relationship Specialty Start Date End Date Dinesh Pisano DO [address] [place] [address] PCP - General 09/26/00 Dinesh Pisano DO [address] [place] [address] Referring Internal Medicine 05/20/21 Gracy Luna APRN [address] [place] [address] Referring Internal Medicine 08/30/24 documented as of this encounter
--- OUTSIDE RECORDS SUMMARY | 2024-12-14 15:19 | XMS_ITS | Encounter Summary ---
Author Organization [facility] Address [address] [place] [address] Care Team Providers Care Director Of Math Name Role Phone Dinesh Pisano DO Primary Care Provider Dinesh Pisano DO Unavailable [phone] Gracy Luna KNEE BOLTER Unavailable [phone] Source Comments In the event this information is protected by the Federal Confidentiality of Alcohol and Drug AbusePatient Records regulations: The Federal rules restrict any use of the information to criminally investigate or prosecute any alcohol or drug abuse patient.[facility] Encounter Details Date Type Department Care Team (Late st Contact Info) Description 07/30/2024 Patient Msg Urology [address] [place], [place] [id number] Natalee Nurse Urol [facility] [address] [place], [place] [phone] Appointment Cancellation Request Social History Tobacco Use Types Packs/Day Years Used Date Smoking Tobacco: Former Cigarettes Q uit: 1979 Smokeless Tobacco: Never Alcohol Use Standard Drinks/Week Comments Yes 7 (1 standard drink = 0.6 oz pur e alcohol) 2 drinks a day [facility] Utilities Answer Date Recorded In the [...] any time in the past 12 m [facility], were you homeless or living in a nursing home (including now)? No 04/26/2024 Area Deprivation Index Answer Date Nguyễn rded National Score (1-100), lower number is lower ri sk 61 09/13/2023 State Score (1-10), lower number is lower risk 4 09/13/2023 Data from: https://www.neighborhoodatlas.medicine.[facility].edu/. Last address used for calculation [address] 09/13/2023 Sex and Gender Information [...] of Assessment Author No 04/26/2024 4:04 PM EST Ti Medellin RN * Do you have serious difficulty [...] 2:00 PM EDT Office Visit Cardiology [address] [place] [address] Micheline Willoughby MD [address] [place] [address] heart block, bradycardia documented as of this encounter Visit Diagnoses Not on filedocumented in this encounter Care Teams Director Of Math Relationship Specialty Start Date End Date Dinesh Pisano DO [address] [place] [address] PCP - General 09/26/00 Dinesh Pisano DO [address] [place] [address] Referring Internal Medicine 05/20/21 Gracy Luna APRN [address] [place] [address] Referring Internal Medicine 08/30/24 documented as of this encounter
--- OUTSIDE RECORDS SUMMARY | 2024-12-14 15:19 | XMS_ITS | Encounter Summary ---
Author Organization [facility] Address [address] [place] [address] Care Team Providers Care Maintenance Shop Technician Name Role Phone Dinesh Pisano DO Unavailable Dinesh Pisano DO Unavailable Dinesh Pisano DO Primary Care Provider Dinesh Pisano DO Unavailable [phone] Encounter Details Date Type Department Care Team (Late st Contact Info) Description 11/18/2022 Abstract [facility] IM [address] [place] [address] Dinesh Pisano DO [address] [place] [address] Social History Tobacco Use Types Packs/Day Years Used Date Smoking Tobacco: Former Cigarettes 1 964 - 1969 Alcohol Use Standard Drinks/Week Comments Yes 4 [...] 01/14/2025 3:00 PM EDT Office Visit [facility] IM [address] [place] [address] Vaschak, Dinesh J, DO [address] [place] [address] documented as of this encounter Visit Diagnoses Not on filedocumented in this encounter Care Teams Maintenance Shop Technician Relationship Specialty Start Date End Date Dinesh Pisano DO [address] [place] [address] PCP - [facility] 06/20/22 08/24/24 Dinesh Pisano DO [address] [place] [address] PCP - [facility] 02/18/22 04/19/23 Dinesh Pisano DO [address] [place] [address] PCP - General Internal Medicine 11/30/22 Dinesh Pisano DO [address] [place] [address] PCP - [facility] 06/20/23 04/19/64 documented as of this encounter
--- OUTSIDE RECORDS SUMMARY | 2024-12-14 15:19 | XMS_ITS | Encounter Summary ---
Author Organization [facility] Address [address] [place] [address] Care Team Providers Care Senior Tech Manufacturing Engineering Name Role Phone Dinesh Pisano DO Primary Care Provider Dinesh Pisano DO Unavailable [phone] Gracy Luna ACCESS SPEC Unavailable [phone] Source Comments In the event this information is protected by the Federal Confidentiality of Alcohol and Drug AbusePatient Records regulations: The Federal rules restrict any use of the information to criminally investigate or prosecute any alcohol or drug abuse patient.[facility] Encounter Details Date Type Department Care Team (Late st Contact Info) Description 10/13/2022 Get Medical Advice Neurology [address] [id number] Angela Renteria APRN.GOVERNMENT SALES MANAGER [address] [place], [place] [phone] Medication Social History Tobacco Use Types Packs/Day [...] N ot on file 07/07/2022 Data from: https://www.neighborhoodatlas.medicine.[facility]/. Last address used for calculation [...] PM EDT Office Visit Cardiology [address] [place] [address] Micheline Willoughby MD [address] [place] [address] heart block, bradycardia documented as of this encounter Visit Diagnoses Not on filedocumented in this encounter Care Teams Senior Tech Manufacturing Engineering Relationship Specialty Start Date End Date Dinesh Pisano DO [address] [place] [address] PCP - General 09/26/00 Dinesh Pisano DO [address] [place] [address] Referring Internal Medicine 05/20/21 Gracy Luna APRN [address] [place] [id number] Referring Internal Medicine 08/30/24 documented as of this encounter
--- OUTSIDE RECORDS SUMMARY | 2024-12-14 15:19 | XMS_ITS | Clinical Summary ---
Author Organization [facility] Address [id number] [address] [place] [address] Care Team Providers Care Agronomy Specialist Name Role Phone Unavailable Primary Care Provider Unavailabl e Social History Tobacco Use Types Packs/Day Years Used Date Smoking Tobacco: Never Assessed Childcare Answer Date Recorded Childcare Unknown 11/29/2018 Employment Answer Date Recorded Employment Unknown 11/29/2018 Sex and Gender Information Value Date Recorded Sex Assigned at Not on file Legal Sex Male 11:31 AM EDT Gender Identity Not on file Sexual Orientation Not on file Plan of Treatment Not on file Medical Devices Not on file
--- OUTSIDE RECORDS SUMMARY | 2024-12-14 15:19 | XMS_ITS | Clinical Summary ---
Author Organization [facility] Address [address] [place] [address] Phone Care Team Providers Care Supply Chain Procurement Manager Name Role Phone Unavailable Primary Care Provider Unavailabl e Social History Tobacco Use Types Packs/Day Years Used Date Smoking Tobacco: Never Assessed Sex and Gender Information Value Date Recorded Sex Assigned at Not on file Legal Sex Male 5:56 AM EST Gender Identity Not on file Sexual Orientation Not on file Plan of Treatment Not on file
--- OUTSIDE RECORDS SUMMARY | 2024-12-14 15:19 | XMS_ITS | Clinical Summary ---
Author Organization [facility] Address [address] [place] [address] Care Team Providers Care Php Web Developer Name Role Phone Dinesh Pisano DO Primary Care Provider Dinesh Pisano DO Unavailable [phone] Gracy Luna DIRECTOR OF FINANCIAL REPORTING Unavailable [phone] Allergies No known active allergies Medications metFORMIN (GLUCOPHAGE) 500 mg tablet Take 500 mg by mouth twice daily with meals. Active lisinopril (ZESTRIL, PRINIVIL) 20 mg tablet Take 20 mg by mouth once daily. Active finasteride (PROSCAR) 5 mg tablet Take 1 tablet by mouth once daily. 30 tablet 11 0 Active cholecalciferol, vitamin D3, (VITAMIN D3 ORAL) Refills(s) 0 0 Active atorvastatin (LIPITOR) 40 mg tablet Take 40 mg by mouth once daily. 3 Active memantine (NAMENDA) 10 mg tabletIndications: Dementia of the Alzheimer's type, with late onset, uncomplicated (HCC) Take 1 tablet by mouth two times a day. 180 tablet 1 3 Active trospium (SANCTURA) 20 mg tablet Take 1 tablet by mouth two times a day before meals. 60 tablet 04/26/2024 3:58 PM EST 4 Active donepezil (ARICEPT) 10 mg tabletIndications: Dementia of the Alzheimer's type, with late onset, uncomplicated (HCC) TAKE 1 TABLET BY MOUTH DAILY WITH FOOD 100 tablet 1 5 Active tamsulosin (FLOMAX) 0.4 mg TAKE 1 CAPSULE BY MOUTH ONCE DAILY 100 capsule 1 5 Active Active Problems Problem Noted Date Diagnosed Date Obesity, Class I, BMI 30-34.9 04/25/2024 Assessment & Plan (04/25/2024 5:50 PM EST): Elevation BMI d/t calorie excess, reduced ambulation Plan: - Education on diet from perinatal educator - Ambulation when able - PT/OT Bradycardia 04/25/2024 Assessment & Plan (04/25/2024 6:32 PM EST): Noted new-onset AV block in OR post-TURP. Normothermic. Got 20mg IVP labetalol in OR. HR dropped to 35 SBP 77/57, rebounded. 35 bpm at this time on tele. Plan: - EP consulted - Telemetry - Keep K+ > 4, Mg2+ > 2 - NPO until after EP evaluates in case needs a pacemaker - Hold all HR lowering agents - OK to resume lisinopril tomorrow - TSH ordered - Keep pacer pads at bedside S/P TURP 04/25/2024 Assessment & Plan (04/25/2024 6:20 PM EST): Urology took sample in OR, kc patent, intact w/ straw colored scant urine in bag. Denies pain/ dysuria. Plan: - Hold AC/ ASA, finasteride, Flowmax for now - Pneumatic compression devices DVT prophylaxis - Amb when able - Manage pain - Monitor UO, character, quality for clots and/or obstruction Diabetes mellitus type 2, controlled, without co mplications 04/25/2024 Assessment & Plan (04/25/2024 5:50 PM EST): HgbA1c 6.0 Plan: - Hold metformin for now - BG AC/HS, SSI coverage - Consistent carb diet Dementia 04/25/2024 Assessment & Plan (04/25/2024 6:32 PM EST): Baseline Hx of, A&Ox2 baseline. Pleasant, cooperative. Plan: - Continue home memantine, pharmacy states does has not refilled recently will hold donepezil - Fall precautions - High risk delirium d/t post-OP status and Hx of - Melatonin to help w/ Sleep-Wake Cycle JASON (obstructive sleep apnea) 04/11/2024 Assessment & Plan (04/11/2024 6:36 PM EDT): Assessment: patient is not CPAP compliant Diabetes mellitus 12/26/2023 Assessment & Plan (04/11/2024 6:36 PM EDT): Assessment: Currently taking metformin A1C 04/03/24 6.0 care everywhere Hyperlipidemia 12/26/2023 Assessment & Plan (04/11/2024 6:35 PM EDT): Assessment: stable with current medication regimen Memory loss 12/30/2022 Screening for condition 12/30/2022 Sleeping excessive 12/30/2022 Benign prostatic hyperplasia with lower urinary tract symptoms 11/12/2022 Assessment & Plan (04/11/2024 6:36 PM EDT): Assessment: presents for surgical intervention Essential hypertension 11/12/2022 Assessment & Plan (04/11/2024 6:35 PM EDT): Assessment: stable and compliant with current medications Last 5 Encounter BP Readings: Date: BP: 02/17/2024 146/77 12/16/2023 128/84 11/17/2023 143/85 09/27/2023 142/90 09/13/2023 151/89 Cognitive communication disorder 10/11/2022 Assessment & Plan (04/11/2024 6:36 PM EDT): Assessment: The patient was accompanied by their spouse, and daughter whom the patient has allowed to participate in the discussion and plan of their care. Patient is able to communicate well, but forgets details. Late onset Alzheimer's demen tia without behavioral disturbance 11/02/2021 Assessment & Plan (04/11/2024 6:37 PM EDT): Assessment: stable, on meds Resolved Problems Problem Noted Date Diagnosed Date Resolved Date Atherosclerosis of aorta 11/12/2022 Cerebral atrophy 11/12/2022 04/11/2024 Social History Tobacco Use Types Packs/Day Years Used Date Smoking Tobacco: Former Cigarettes Q uit: 1979 Smokeless Tobacco: Never Tobacco Cessation:Counseling Given: Not Answered Alcohol Use Standard Drinks/Week Comments Yes 7 (1 standard drink = 0.6 oz pur e alcohol) 2 drinks a day [facility] Utilities Answer Date Recorded In the past 12 months has th e [employer], gas, oil, or water Valuation App threatened to shut off services in your [...] any time in the past 12 m [facility], were you homeless or living in a nursing home (including now)? No 04/26/2024 Area Deprivation Index Answer Date Nguyễn rded National Score (1-100), lower number is lower ri sk 61 09/13/2023 State Score (1-10), lower number is lower risk 4 09/13/2023 Data from: https://www.neighborhoodatlas.medicine.[facility].edu/. Last address used for calculation [address] 09/13/2023 Sex and Gender Information Value Date Recorded Sex Assigned at Not on file Legal Sex Male 8:56 AM EST Gender Identity Not on file Sexual Orientation Not on file Last Filed Vital Signs Vital Sign Reading Time Taken Comments Blood Pressure 133/69 05/03/2024 7:33 AM EST Pulse 83 05/10/2024 2:21 PM EST Temperature 36.6 C (97.8 F) 04/30/2024 8:32 PM EST Respiratory Rate 17 04/30/2024 8:32 PM EST Oxygen Saturation 98% 05/10/2024 2:21 PM EST Inhaled Oxygen Concentration - - Weight 98 kg (216 lb) 05/10/2024 2:21 PM EST Height 172.7 cm (5' 8 ) 04/25/2024 6:17 PM EST Body Mass Index 32.84 04/25/2024 6:17 PM EST Plan of Treatment Upcoming Encounters Date Type Department Care Team (Late st Contact Info) Description 01/03/2025 2:00 PM EDT Office Visit Cardiology [address] [facility] [place] [address] Micheline Willoughby MD [address] [facility] [place] [address] heart block, bradycardia Health Maintenance Due Date Last Done Comments Diabetic Foot Exam 1954 Dilated Retinal Exam 1954 Urine Albumin:Creatinine Ratio 1954 Annual PCP Team Chronic Dise ase Visit 1962 Shingrix Vaccine (1 of 2) 1994 RSV Vaccine (1 - 1-dose 75+ series) 2019 LDL Cholesterol 11/23/2023 11/22/2022 Covid-19 Vaccine (2023-2 5 season) 2024 04/23/2021, 08/15/2020, 07/27/2020 Advance Directive Discussion 06/20/2024 Medicare Advantage Annual We llness Visit 06/20/2024 HbA1C 10/02/2024 04/03/2024, 08/19, 06/01/2023, Additional history exists DTaP,Tdap,Td Vaccine (2 - Td or Tdap) 12/25/2033 12/26/2023 Pneumococcal Vaccine: 50+ Completed 11/17/2021, Influenza Vaccine Completed 04/03/2024, , 05/28/2022, Additional history exists Insurance [place] [address] [employer] H[employer] Advance Directives * Full Code (Latest Code Status on File) Date Activated Date Inactivated Comments 04/25/2024 6:15 PM 04/26/2024 7:05 PM Question Answer Comments Full Code Order Discussed With: Patient Care Teams Php Web Developer Relationship Specialty Start Date End Date Dinesh Pisano DO [address] [place] [address] PCP - General 09/26/00 Dinesh Pisano DO [address] [place] [address] Referring Internal Medicine 05/20/21 Gracy Luna APRN [address] [address] Referring Internal Medicine 08/30/24
--- OUTSIDE RECORDS SUMMARY | 2024-12-14 15:19 | XMS_ITS | Encounter Summary ---
Author Organization [facility] Address [address] [address] Care Team Providers Care Cook School Cafeteria Name Role Phone Dinesh Pisano DO Primary Care Provider [phone] Dinesh Pisano DO Unavailable [phone] Encounter Details Date Type Department Care Team (Late Contact Info) Description 10/04/2024 Orders Only [facility] IM [address] [place] [address] Caden Gotti MD [address] [place] [address] Social History Tobacco Use Types Packs/Day Years Used Date Smoking Tobacco: Former Cigarettes 1 964 1969 Smokeless Tobacco: Never Alcohol Use Standard [...] Office Visit [facility] [address] [place] [address] Dinesh Pisano DO [address] [place] [address] documented as of this encounter Procedures Procedure Name Priority Date/Time Associated Diagnosis Comments XR ABDOMEN 1 VIEW Routine 10/02/2024 8:16 AM EDT documented in this encounter Results * XR abdomen 1 view (10/02/2024 8:16 AM EDT) Anatomical Region Laterality Modality Abdomen Radiographic Alla ging us Caden Gotti MD IMG XR PROCEDURES Final Result documented in this encounter Visit Diagnoses Not on filedocumented in this encounter Care Teams [employer]eter[employer] Relationship Specialty Start Date End Date Dinesh Pisano DO [address] [place] [address] PCP - General Internal Medicine 11/30/22 Dinesh Pisano DO [address] [place] [address] PCP - [facility] 06/20/23 04/19/64 documented as of this encounter
--- OUTSIDE RECORDS SUMMARY | 2024-12-14 15:19 | XMS_ITS | Encounter Summary ---
Author Organization [facility] Address [address] [place] [address] Care Team Providers Care Tiler Name Role Phone Dinesh Pisano DO Unavailable [phone] Dinesh Pisano DO Primary Care Provider Dinesh Pisano DO Unavailable [phone] Encounter Details Date Type Department Care Team [...] IM [address] [place] [address] Dinesh Pisano DO [address] [place] [address] documented as of this encounter Procedures Procedure Name Priority Date/Time Associated Diagnosis Comments US PELVIS BLADDER -NB 11/10/2023 1:36 PM EDT documented in this encounter Results * US PELVIS BLADDER -NB (11/10/2023 1:36 PM EDT) Anatomical Region Laterality Modality Other 11/10/2023 1:36 PM EDT Narrative 11/10/2023 4:47 PM EDT * * *Final Report* * * DATE OF EXAM: Nov 10 2023 1:36PM LNU 1042 - US PELVIS BLADDER -NB / PROCEDURE REASON: Urge incontinence * * [...] 4. Incidental note made of hepatic steatosis. Recreation Officer: PSCB Transcribe Date/Time: Nov 10 2023 4:41P Dictated by : FABY CANAS MD This examination was interpreted and the report reviewed and electronically signed by: FABY CANAS MD on Nov 10 2023 4:44PM EST [id number]^SI^ACN Procedure Note Radiology, Radiologist, - 11/10/2023 * * *Final Report* * * DATE OF EXAM: Nov 10 2023 1:36PM LNU 1042 - US PELVIS BLADDER -NB / PROCEDURE REASON: Urge incontinence * * [...] 4. Incidental note made of hepatic steatosis. Recreation Officer: LALO Transcribe Date/Time: Nov 10 2023 4:41P Dictated by : FABY CANAS MD This examination was interpreted and the report reviewed and electronically signed by: FABY CANAS MD on Nov 10 2023 4:44PM EST [id number]^SI^ACN Generic External Data Provider [facility] Final Result documented in this encounter Visit Diagnoses Not on filedocumented in this encounter Care Teams Tiler Relationship Specialty Start Date End Date Dinesh Pisano DO [address] [place] [address] PCP - [facility] 06/20/22 08/24/24 Dinesh Pisano DO [address] [place] [address] PCP - General Internal Medicine 11/30/22 Dinesh Pisano DO [address] [place] [address] PCP - [facility] 06/20/23 04/19/64 documented as of this encounter
--- OUTSIDE RECORDS SUMMARY | 2024-12-14 15:19 | XMS_ITS | Encounter Summary ---
Author Organization [facility] Address [address] [place] [address] Care Team Providers Care Supervisor Airplane Flight Attendant Name Role Phone Dinesh Pisano DO Primary Care Provider Dinesh Pisano DO Unavailable [phone] Gracy Luna STONE PAVER Unavailable [phone] Source Comments In the event this information is protected by the Federal Confidentiality of Alcohol and Drug AbusePatient Records regulations: The Federal rules restrict any use of the information to criminally investigate or prosecute any alcohol or drug abuse patient.[facility] Encounter Details Date Type Department Care Team (Late st Contact Info) Description 05/30/2024 Get Medical Advice Urology [address] [place] [address] Jacob Pena MD [address] [place], [place] [id number] Medications Social History Tobacco Use Types Packs/Day Years Used Date Smoking Tobacco: Former Cigarettes Q uit: 1979 Smokeless Tobacco: Never Alcohol Use Standard Drinks/Week Comments Yes 7 (1 standard drink = 0.6 oz pur e alcohol) 2 drinks a day [facility] Utilities Answer Date Recorded In the [...] No 04/26/2024 Housing Stability Vital Sign Answer Macro e Recorded In the last 12 months, was t here a time when you were not able to pay the mortgage or rent on time? No 04/26/2024 Number of Times Moved in the Last Year Not on fi le 04/26/2024 At any time in the past 12 m [facility], were you homeless or living in a detention (including now)? No 04/26/2024 Area Deprivation Index Answer Date Nguyễn rded National Score (1-100), lower number is lower ri sk 61 09/13/2023 State Score (1-10), lower number is lower risk 4 09/13/2023 Data from: https://www.neighborhoodatlas.medicine.[facility].edu/. Last address used for calculation [address] [...] 2:00 PM EDT Office Visit Cardiology [address] [place] [address] Micheline Willoughby MD [address] [place] [address] heart block, bradycardia documented as of this encounter Visit Diagnoses Not on filedocumented in this encounter Care Teams Supervisor Airplane Flight Attendant Relationship Specialty Start Date End Date Dinesh Pisano DO [address] [address] PCP - General 09/26/00 Dinesh Pisano DO [address] [place] [address] Referring Internal Medicine 05/20/21 Gracy Luna APRN [address] [place] [address] Referring Internal Medicine 08/30/24 documented as of this encounter
--- OUTSIDE RECORDS SUMMARY | 2024-12-14 15:19 | XMS_ITS | Encounter Summary ---
Author Organization [facility] Address [address] [place] [address] Care Team Providers Care Line Staker Name Role Phone Dinesh Pisano DO Primary Care Provider Dinesh Pisano DO Unavailable [phone] Gracy Luna HAND ALTERATIONS TAILOR Unavailable [phone] Source Comments In the event this information is protected by the Federal Confidentiality of Alcohol and Drug AbusePatient Records regulations: The Federal rules restrict any use of the information to criminally investigate or prosecute any alcohol or drug abuse patient.[facility] Encounter Details Date Type Department Care Team (Late st Contact Info) Description 04/06/2023 Patient Msg Neurology [address] [place] [id number] Provider, [facility] PLEASE CONFIRM SLEEP STUDY #3 Social History Tobacco Use Types Packs/Day Years [...] is lower risk 8 11/11/2022 Data from: https://www.neighborhoodatlas.medicine.[facility].edu/. Last address used for calculation [address] [...] 2:00 PM EDT Office Visit Cardiology [address] [place] [address] Micheline Willoughby MD [address] [place] [address] heart block, bradycardia documented as of this encounter Visit Diagnoses Not on filedocumented in this encounter Care Teams Line Staker Relationship Specialty Start Date End Date Dinesh Pisano DO [address] [place] [address] PCP - General 09/26/00 Dinesh Pisano DO [address] [place] [address] Referring Internal Medicine 05/20/21 Gracy Luna APRN [address] [place] [address] Referring Internal Medicine 08/30/24 documented as of this encounter
--- OUTSIDE RECORDS SUMMARY | 2024-12-14 15:19 | XMS_ITS | Encounter Summary ---
Author Organization [facility] Address [address] [place] [id number] Care Team Providers Care Deli Department Manager Name Role Phone Dinesh Pisano DO Primary Care Provider Dinesh Pisano DO Unavailable [phone] Gracy Luna FINANCIAL SYSTEMS DIRECTOR Unavailable Source Comments In the event this information is protected by the Federal Confidentiality of Alcohol and Drug AbusePatient Records regulations: The Federal rules restrict any use of the information to criminally investigate or prosecute any alcohol or drug abuse patient.[facility] Encounter Details Date Type Department Care Team (Late st Contact Info) Description 02/17/2023 Get Medical Advice [facility] Speech Therapy [address] [place] [address] Tricia Jennings, [facility] TRAFFIC CONTROL OPERATOR [address] [place] [address] To do Social History Tobacco Use Types Packs/Day Years [...] is lower risk 8 11/11/2022 Data from: https://www.neighborhoodatlas.medicine.[facility]/. Last address used for calculation [address] [...] 2:00 PM EDT Office Visit Cardiology [address] [facility] [place] [place] [address] Micheline Willoughby MD [address] [place] [address] heart block, bradycardia documented as of this encounter Visit Diagnoses Not on filedocumented in this encounter Care Teams Deli Department Manager Relationship Specialty Start Date End Date Dinesh Pisano DO [address] [place] [address] PCP - General 09/26/00 Dinesh Pisano DO [address] [place] [address] Referring Internal Medicine 05/20/21 Gracy Luna APRN [address] [facility] [address] [place] [id number] Referring Internal Medicine 08/30/24 documented as of this encounter
== END 2024-12-14 15:17 | disposition home or self-care (01) ==
LOC: RAD 15:16
PROVIDERS: PCP Internal Medicine; Visit Provider Urology
DX: N20.0 Calculus of kidney (principal)
CPT/HCPCS: 74018